=== PATIENT | female | born 1935 | race Caucasian/White ===

== ENCOUNTER 2017-09-17 12:22 | Outpatient (CLI) | payer MEDICARE, OTHER ==
--- NOTE | 2017-09-17 14:09 | Diagnostic Imaging Report ---
Indication: Chest pain Technique: 2 views of the chest Comparison: None Findings: Linear atelectasis or scarring seen in the right lateral lung base. The remainder the lungs and pleural spaces are clear. The heart size is normal. The aorta is tortuous and calcified. There is mild anterior wedge compression fracture deformity of the T12 vertebral body Impression: Minimal right lateral basilar atelectasis or scarring. No acute pulmonary process otherwise T12 compression fracture, age indeterminate. Consider MRI for better characterization if this is clinically relevant. This was discussed by phone with Dr. Mark
--- NOTE | 2017-09-17 16:42 | Diagnostic Imaging Report ---
Indication: Pain Technique: Multiple radiographic views of the maxillofacial sinuses Comparison: none Findings: An air-fluid level is seen in the left maxillary sinus. The remaining sinuses are clear. Impression: No evidence of acute left maxillary sinusitis Findings discussed by phone previously with Dr. Mark
== END 2017-09-17 14:22 | disposition home or self-care (01) ==
LOC: RAD 12:22
DX: R05 Cough (principal); J98.11 Atelectasis; S22.089A Unspecified fracture of T11-T12 vertebra, initial encounter for closed fracture; X58.XXXA Exposure to other specified factors, initial encounter; Y93.9 Activity, unspecified; Y92.9 Unspecified place or not applicable; R09.81 Nasal congestion
CPT/HCPCS: 70220; 71046

== ENCOUNTER → 2017-11-02 | Outpatient (CLI) | payer MEDICARE, OTHER ==
--- NOTE | 2017-11-02 15:09 | Diagnostic Imaging Report ---
Indication: Pain, sinusitis Technique: 4 views of the maxillofacial sinuses Comparison: 09/17/2017 Findings: Exam is somewhat limited, as submental view could not be obtained. Previously demonstrated left maxillary sinus air-fluid level is no longer evident. Sinuses are grossly clear. The nasal septum is midline Impression: No definite acute process. Previously demonstrated left maxillary sinus air-fluid level is no longer evident
== END | disposition home or self-care (01) ==
LOC: RAD 09:18
DX: J32.9 Chronic sinusitis, unspecified (principal)
CPT/HCPCS: 70220